=== PATIENT | male | born 1990 | race Caucasian/White ===

== ENCOUNTER 2020-06-09 20:23 | Emergency (ER) | payer SELFPAY ==
[~2020-06-09] VITALS: Ht 182.9 cm; Wt 72.6 kg
[2020-06-09 20:35] VITALS: BP 139/83
--- NOTE | 2020-06-09 21:37 | NUR ---
PT SEEN AND EVALUATED BY YARELY BATES. NO NURSING CARE PROVIDED. PT SENT HOME WITH RX OF KEFLEX. MEDICATION ADMINISTRATION AND SIDE EFFECTS EXPLAINED. PT VERBALIZED UNDERSTANDING. PT AMBULATORY TO PERSONAL VEHICLE.
== END 2020-06-09 21:37 | disposition home or self-care (01) ==
LOC: MED 20:23
DX: L73.8 Other specified follicular disorders (principal)
CPT/HCPCS: 99283

== ENCOUNTER 2020-06-13 19:27 | Emergency (ER) | payer MEDICAID ==
[~2020-06-13] VITALS: Ht 185.4 cm; Wt 73.5 kg
[2020-06-13 19:34] VITALS: BP 144/64
--- NOTE | 2020-06-13 19:34 | NUR ---
TO [facility] AMBULATORY
--- NOTE | 2020-06-13 19:40 | NUR ---
PT WOUND ON L HAND SOAKED WITH SOLUTION OF NORMAL SALINE AND BETADINE
--- NOTE | 2020-06-13 19:42 | NUR ---
Patient 30 Y/O male BIB self for c/o lac between the 3rd and 4th digit. Per patient he cut himself with a knife at home. Approximately 1cm in length, edges approximated,bleeding scant. Patient states last TDAP Vaccination was given 2 years ago. MEDHX: [facility]
--- NOTE | 2020-06-13 19:42 | NUR ---
EMT CLEANING WOUND IN RUBY. SCANT BLEEDING NOTED. EDGES APPROXIMATED.
[2020-06-13] MEDS ORDERED: LORazepam 2 MG/ML VIAL IM ONE (19:50)
[2020-06-13] MEDS ORDERED: LIDOCAINE/EPI 1% 1:100000 20 ML VIAL INJ ONE (19:50)
[2020-06-13] MEDS ORDERED: BACITRACIN OINT 500 UNITS/GM PKT TP ONE (19:50)
--- NOTE | 2020-06-13 19:50 | NUR ---
Dr. Agustin examining patient.
--- NOTE | 2020-06-13 20:02 | NUR ---
PT MOVED TO ER BED 11
--- NOTE | 2020-06-13 20:32 | NUR ---
ERMD AT BEDSIDE PERFORMING SUTURE PROCEDURE.
--- NOTE | 2020-06-13 20:44 | NUR ---
PT WOUND ON L HAND BETWEEN 3RD AND 4TH DIGITS COVERED WITH NON ADHERENT DRESSING AND WRAPPED WITH COFLEX TAPE.
--- NOTE | 2020-06-13 20:59 | NUR ---
Patient is currently ambulatory with steady gait, able to walk unassisted. Alert and oriented. Is not driving self for discharge out of facility.
[2020-06-13 21:00] VITALS: BP 139/88
--- NOTE | 2020-06-13 21:00 | NUR ---
Patient discharged with v/s stable. Written and verbal after care instructions given and explained. Patient verbalized understanding. Ambulatory with steady gait. All questions addressed prior to discharge. Advised to follow up with PMD.
== END 2020-06-13 21:00 | disposition home or self-care (01) ==
LOC: MED 19:27
DX: S61.412A Laceration without foreign body of left hand, initial encounter (principal); W26.0XXA Contact with knife, initial encounter; Y93.89 Activity, other specified; Y92.89 Other specified places as the place of occurrence of the external cause; Y99.8 Other external cause status
CPT/HCPCS: 12001; 96372; 99283; J2001; J2060